=== PATIENT | male | born 1945 | race Asian ===

== ENCOUNTER 2018-09-27 11:27 | Inpatient (IN) | payer MEDICAID, MEDICARE, OTHER ==
[~2018-09-27] VITALS: Ht 170.2 cm; Wt 67.6 kg
[2018-09-27 11:34] VITALS: BP 187/87
[2018-09-27] MEDS ORDERED: ATORVASTATIN CA40 MG ORAL (11:35)
[2018-09-27] MEDS ORDERED: GLIPIZIDE10 MG PO (11:35)
[2018-09-27] MEDS ORDERED: METFORMIN HCL1000 M2 ORAL (11:35)
[2018-09-27] MEDS ORDERED: GABAPENTIN400 MG ORAL (11:35)
[2018-09-27] MEDS ORDERED: ACTOS30 MG ORAL (11:35)
[2018-09-27] MEDS ORDERED: VITAMIN D31000 UNI3 PO (11:35)
[2018-09-27] MEDS ORDERED: ASPIRIN-LOW81 MG ORAL (11:35)
--- NOTE | 2018-09-27 11:35 | NUR ---
ED Nurse Note: Patient brought in by ambulance from home due to N/V (pink colored emesis~ 20ml noted in bag, no blood) x 1hr. Reports no pain. Patient awake, alert, orientedx 4. Patient c/o dizziness. No facial droop. Speech is clear. Equal hand strength noted. Reports no recent illness or cough. Placed patient in semi-carlson position. Provided emesis bag at bedside. Patient took HTN medication today. Bed in lowest position. Addendum: 09/27/18 at 1225 by TEN No arm drift noted.
[2018-09-27] MEDS ORDERED: Meclizine 25mg tab ORAL ONE (11:45)
[2018-09-27 12:01] LABS: EOSINOPHILS % (AUTO) 19.9 % (0.0-3.0); HEMATOCRIT 37.4 % (42.0-52.0); HEMOGLOBIN 12.3 G/DL (14.2-18.0); LYMPHOCYTES % (AUTO) 26.2 % (20.0-45.0); MEAN CORPUSCULAR VOLUME 79 FL (80-99); MONOCYTES % (AUTO) 2.9 % (1.0-10.0); PLATELET COUNT 183 K/UL (150-450); RED BLOOD COUNT 4.75 M/UL (4.70-6.10); RED CELL DISTRIBUTION WIDTH 14.4 % (11.6-14.8); WHITE BLOOD COUNT 13.9 K/UL (4.8-10.8)
[2018-09-27 12:09] LABS: ANION GAP 15 mmol/L (5-15); BLOOD UREA NITROGEN 22 mg/dL (7-18); CALCIUM 9.6 MG/DL (8.5-10.1); CARBON DIOXIDE 25 MMOL/L (21-32); CHLORIDE 103 MMOL/L (98-107); CREATININE 1.3 MG/DL (0.55-1.30); POTASSIUM 3.7 MMOL/L (3.5-5.1); SODIUM 142 MMOL/L (136-145)
[2018-09-27] MEDS ORDERED: VITAMIN D31000 UNI4 PO (12:15)
[2018-09-27] MEDS ORDERED: LANTUS SOL100 UNIT/1 SUBQ (12:15)
--- NOTE | 2018-09-27 12:20 | NUR ---
ED Nurse Note: Patient taken down for CT scan. Family member at bedside.
[2018-09-27 12:22] LABS: ALANINE AMINOTRANSFERASE 18 U/L (12-78); ALBUMIN 4.2 G/DL (3.4-5.0); ALBUMIN/GLOBULIN RATIO 1.1 (1.0-2.7); ALKALINE PHOSPHATASE 62 U/L (46-116); ASPARTATE AMINO TRANSFERASE 16 U/L (15-37); BILIRUBIN,TOTAL 0.5 MG/DL (0.2-1.0); CKMB 1.2 NG/ML (0.0-3.6); CREATINE KINASE 122 U/L (26-308)
--- NOTE | 2018-09-27 12:26 | Diagnostic Imaging Report ---
Indication: Cough Comparison: 08/11/2013 and A single view chest radiograph was obtained. Findings: Only vascular congestion is present with cardiomegaly. There is mild basilar atelectasis on the left. Aorta is calcified. Sternotomy noted. Bones are osteopenic. IMPRESSION: Suspected mild CHF
--- NOTE | 2018-09-27 13:01 | Emergency Room Report ---
History of Present Illness General Chief Complaint: Vomiting Source: Patient, EMS Present Illness HPI Patient presents emergency department today complaining of acute onset of severe nausea and vomiting. Patient states that he is volume eating very severely and cannot tolerate anything p.o. In addition he complained of dizziness. He denies any chest pain or shortness of breath. Denies any dysuria urinary frequency. Symptoms noted to be severe. No other modifying factors. No other associated signs and symptoms. No other complaints were noted. Denies eating anything out of the ordinary. Denies any diarrhea. Denies any abdominal pain. Patient has never had episodes this before. Denies any headache. No other modifying factors. No other associated signs and symptoms. No other complaints were noted. Allergies: Coded Allergies: No Known Allergies (Verified , 03/20/09) Patient History Past Medical History: DM, HTN Past Surgical History: none Pertinent Family History: none Social History: Denies: smoking, alcohol use, drug use Reviewed Nursing Documentation: PMH: Agreed; PSxH: Agreed Nursing Documentation-PMH Past Medical History: No History, Except For Hx Hypertension: Yes Hx Diabetes: Yes Review of Systems All Other Systems: negative except mentioned in HPI Physical Exam Vital Signs Date Time Temp Pulse Resp B/P (MAP) Pulse Ox O2 Delivery O2 Flow Rate FiO2 09/27/18 11:23 97.9 87 16 193/82 (119) 98 Room Air Sp02 EP Interpretation: reviewed, normal General Appearance: alert, moderate distress Head: atraumatic Eyes: bilateral eye normal inspection ENT: normal ENT inspection, hearing grossly normal, normal voice Neck: normal inspection, full range of motion, supple, no bony tend Respiratory: normal inspection, lungs clear, normal breath sounds, no respiratory distress, no retraction, no wheezing Cardiovascular #1: regular rate, rhythm, no edema Gastrointestinal: normal inspection, normal bowel sounds, non tender, soft, no guarding, no hernia Genitourinary: no CVA tenderness Musculoskeletal: normal inspection, back normal, normal range of motion Neurologic: normal inspection, alert, responsive, speech normal, other - Appears vertiginous. Unable to get up or walk. Psychiatric: anxious Skin: no rash Medical Decision Making Diagnostic Impression: Primary Impression: Vertigo Additional Impressions: Intractable vomiting Unable to ambulate CVA (cerebral vascular accident) ER Course Patient presents emergency department today with vertigo. Differential diagnosis include acute CVA, acute electrolyte abnormality, benign positional vertigo just name a few. Given the severity of the patient's presentation I felt this is a highly complex patient. This patient required extensive workup. Patient exam is concerning for vertigo. Because of patient's age however CT scan was obtained. Patient was given Valium meclizine Zofran and fluids with significant improvement symptoms. CT scan of the head showed evidence of subacute CVA. 2 chronic CVA. Given patient's symptoms are improving and that the CT scan shows a subacute CVA patient does not qualify for TPA. As patient' s symptoms are unlikely to be related to the CVA. Furthermore patient's CT scan is subacute suggesting that patient could have had a infarct sometime ago. Therefore patient did not meet TPA criteria. Patient will be admitted for further management. Case was discussed in detail with Dr. Amari Romero. Patient will be placed on telemetry. Patient was given aspirin. Patient was reevaluated at 1:50 PM and feels significantly improved. Labs Test 09/27/18 11:45 White Blood Count 13.9 K/UL (4.8-10.8) Red Blood Count 4.75 M/UL (4.70-6.10) Hemoglobin 12.3 G/DL (14.2-18.0) Hematocrit 37.4 % (42.0-52.0) Mean Corpuscular Volume 79 FL (80-99) Mean Corpuscular Hemoglobin 25.9 PG (27.0-31.0) Mean Corpuscular Hemoglobin Concent 33.0 G/DL (32.0-36.0) Red Cell Distribution Width 14.4 % (11.6-14.8) Platelet Count 183 K/UL (150-450) Mean Platelet Volume 7.6 FL (6.5-10.1) Neutrophils (%) (Auto) 50.0 % (45.0-75.0) Lymphocytes (%) (Auto) 26.2 % (20.0-45.0) Monocytes (%) (Auto) 2.9 % (1.0-10.0) Eosinophils (%) (Auto) 19.9 % (0.0-3.0) Basophils (%) (Auto) 1.0 % (0.0-2.0) Sodium Level 142 MMOL/L (136-145) Potassium Level 3.7 MMOL/L (3.5-5.1) Chloride Level 103 MMOL/L (98-107) Carbon Dioxide Level 25 MMOL/L (21-32) Anion Gap 15 mmol/L (5-15) Blood Urea Nitrogen 22 mg/dL (7-18) Creatinine 1.3 MG/DL (0.55-1.30) Estimat Glomerular Filtration Rate mL/min (>60) Glucose Level 302 MG/DL (74-106) Calcium Level 9.6 MG/DL (8.5-10.1) Total Bilirubin 0.5 MG/DL (0.2-1.0) Aspartate Amino Transf (AST/SGOT) 16 U/L (15-37) Alanine Aminotransferase (ALT/SGPT) 18 U/L (12-78) Alkaline Phosphatase 62 U/L (46-116) Total Creatine Kinase 122 U/L (26-308) Creatine Kinase MB 1.2 NG/ML (0.0-3.6) Creatine Kinase MB Relative Index 0.9 Troponin I 0.005 ng/mL (0.000-0.056) Total Protein 7.9 G/DL (6.4-8.2) Albumin 4.2 G/DL (3.4-5.0) Globulin 3.7 g/dL Albumin/Globulin Ratio 1.1 (1.0-2.7) Lipase 327 U/L (73-393) EKG Diagnostic Results Rate: normal Rhythm: NSR ST Segments: other - Right bundle branch block Rhythm Strip Diag. Results EP Interpretation: yes Rate: 83 Rhythm: NSR, no PVC's, no ectopy Chest X-Ray Diagnostic Results Chest X-Ray Diagnostic Results : Chest X-Ray Ordered: Yes # of Views/Limited/Complete: 1 View Indication: Shortness of Breath EP Interpretation: No Interpretation: no consolidation, no effusion, no pneumothorax, other - Mild CHF CT/MRI/US Diagnostic Results CT/MRI/US Diagnostic Results : Imaging Test Ordered: Head CT: Subacute infarct to chronic infarct Last Vital Signs Date Time Temp Pulse Resp B/P (MAP) Pulse Ox O2 Delivery O2 Flow Rate FiO2 09/27/18 11:45 98 18 Room Air 09/27/18 11:34 187/87 99 09/27/18 11:23 97.9 Status: improved Disposition: ADMITTED INPATIENT Condition: Serious Referrals: NON PHYSICIAN (PCP) Esequiel Stark MD Sep 27, 2018 13:01
[2018-09-27 13:03] VITALS: BP 190/74
--- NOTE | 2018-09-27 13:09 | Diagnostic Imaging Report ---
Indication: Vertigo nausea and vomiting Technique: Contiguous 5 mm thick transaxial imaging of the head obtained in a Siemens Sensation [address] scanner. Soft tissue and bone windows generated. Automatic Exposure Control was utilized. Total Dose length Product (DLP): 1559.[address] Dose Index Volume (CTDIvol): 70.38 mGy Comparison: none Findings: There is mild prominence of the ventricles, basal cisterns, and cerebral sulci consistent with atrophy. Mild, nonspecific, white matter hypoattenuation is noted throughout the brain consistent with chronic small vessel disease. There is a subcentimeter low-attenuation focus in the left thalamus consistent with lacunar infarct. This is probably not acute. However please correlate clinically. There is no midline shift, edema, acute hemorrhage, mass effect, or abnormal extra-axial fluid collections. Bones are unremarkable. Impression: 7 mm lacunar infarct in the left thalamus. This is probably subacute to chronic in age; please correlate clinically. No acute intracranial bleed, mass effect or edema. Mild atrophy of the brain. Nonspecific white matter hypoattenuation probably due to chronic small vessel disease. The CT scanner at [facility] is accredited by the [employer] [place] [employer] and the scans are performed using dose optimization techniques as appropriate to a performed exam including Automatic Exposure control.
--- NOTE | 2018-09-27 13:22 | NUR ---
ED Nurse Note: Dr. Stark notified that patient c/o headache and high blood pressure 183/77 with HR 69. Reports no dizziness or drowsiness. No N/V at this time.
[2018-09-27] MEDS ORDERED: Morphine Sulfate 4mg/ml Inj (IV USE ONLY) IVP ONE (13:30)
--- NOTE | 2018-09-27 14:15 | NUR ---
ED Nurse Note: Patient BP is still elevated 180/70 after giving hypertensive medicine, MD made aware and acknowledged. Non SOB. Breathing even and unlabored. Spoke with Radha RAE from SDU to give report.
[2018-09-27] MEDS ORDERED: Aspirin Baby 81mg ONE (14:16)
--- NOTE | 2018-09-27 14:16 | NUR ---
ED Nurse Note: Dr. Stark notified and aware of blood pressure. No further order received and ok to transfer patient to SDU at this time.
[2018-09-27] MEDS: Aspirin Baby 81mg ORAL SCH (14:17)
[2018-09-27 14:25] VITALS: BP 194/93
--- NOTE | 2018-09-27 14:25 | NUR ---
ED Nurse Note: Patient is being transferred to SDU, accompanied by RN and EMT. No neuro changes noted. Belongings given to patient's daughter.
--- NOTE | 2018-09-27 14:28 | NUR ---
ED Nurse Note: Belongings including ringx1, watchx1 and necklace given to daughter, Tammy.
[2018-09-27 16:00] VITALS: BP 164/78
[2018-09-27] MEDS ORDERED: Pantoprazole Inj IVP SCH (16:10)
--- NOTE | 2018-09-27 16:18 | NUR ---
NURSE NOTES: SPOKE WITH DR MERCEDES AND DR SANTOYO. NEW ORDERS MADE AND CARRIED OUT. WILL CONTINUE TO MONITOR.
[2018-09-27 19:18] LABS: APPEARANCE,URINE CLEAR; BILIRUBIN, URINE NEGATIVE (NEGATIVE); COLOR,URINE PALE YELLOW; GLUCOSE, URINE (UA) 4+ (NEGATIVE); KETONES,URINE 1+ (NEGATIVE); LEUKOCYTE ESTERASE ,URINE NEGATIVE (NEGATIVE); NITRITE,URINE NEGATIVE (NEGATIVE); PH,URINE 8 (4.5-8.0); PROTEIN,URINE 3+ (NEGATIVE); UROBILINOGEN,URINE NORMAL MG/DL (0.0-1.0)
--- NOTE | 2018-09-27 19:21 | NUR ---
HAND-OFF: Report given to Isaura Sanchez RN.
--- NOTE | 2018-09-27 19:22 | NUR ---
NURSE NOTES: Received bedside report from BUTCH Brasher.Patient stable,A&O x4,SR w/BBB on electronic device monitor,tolerated r/air well,no c/o pain,no respiratory distress noted,NPO,BS active in all quadrants,IV asymptomatic,intact on R hand G 20 running with NS @ 75 ml/hr,bed secured in a low safety position,call light within a reach, Family at bedside.Will continue to follow POC.
[2018-09-27 20:00] VITALS: BP 154/66
--- NOTE | 2018-09-27 20:04 | NUR ---
NURSE NOTES: Report given to BUTCH Chang.Patient stable,sleeping
--- NOTE | 2018-09-27 20:05 | NUR ---
NURSE NOTES: Received patient from BUTCH Weems. patient is resting in bed, AO X4, denies pain at this time. patient is on room air, tolerating well. no s/sx of respiratory distress noted at this time. Condom catheter is patent and intact. IV site is patent and intact, running fluids at prescribed rate. bed in lowest position and locked, siderails up x2, call light within reach. will continue to monitor.
--- NOTE | 2018-09-27 21:00 | NUR ---
NURSE NOTES: patient c/o pressure in bladder and unable to urinate. bladder scan shows 675 ml of urine in bladder. hot and cold compresses applied. will continue to monitor.
--- NOTE | 2018-09-27 21:10 | NUR ---
NURSE NOTES: patient was able to void 375 ml of urine. post void retention is 309. patient refuses catheter. explained risks and benefits of catheter insertion, patient verbalized understanding, but still refuses. will inform MD.
--- NOTE | 2018-09-27 21:27 | NUR ---
NURSE NOTES: called and left message for Dr. Cabrera regarding patient's urinary retention. awaiting orders.
[2018-09-27] MEDS: Pantoprazole Inj IVP SCH (21:34)
--- NOTE | 2018-09-27 21:55 | NUR ---
NURSE NOTES: Received call back from Dr. Cabrera. will carry out orders.
[2018-09-27] MEDS ORDERED: Tamsulosin 0.4mg cap ORAL SCH ×2 (22:00)
--- NOTE | 2018-09-27 22:00 | NUR ---
NURSE NOTES: followed up with MD regarding insulin coverage. patient is currently NPO; blood sugar is currently 188. will continue to monitor. awaiting call back.
[2018-09-27] MEDS ORDERED: FLOMAX0.4 MG ORAL (22:08)
[2018-09-27] MEDS ORDERED: PROSCAR5 MG ORAL (22:08)
[2018-09-27] MEDS ORDERED: METOPROLOL SUCC50 MG ORAL (22:11)
--- NOTE | 2018-09-27 23:30 | Consultation ---
DATE OF CONSULTATION: 09/27/2018 INFECTIOUS DISEASE CONSULTATION CONSULTING PHYSICIAN: Florencio Dennison M.D. PRIMARY ATTENDING PHYSICIAN: Amari Castorena M.D. REASON FOR CONSULT: Leukocytosis and renal failure. HISTORY OF PRESENT ILLNESS: The patient is a 72-year-old [place] male, admitted today from home complaining of dizziness, nausea, and vomiting, was found to have vertigo. A CT scan of the head showed subacute to chronic lacunar infarct and also leukocytosis with WBC of 13.9, had eosinophilia around 20%. PAST MEDICAL HISTORY: Significant for diabetes mellitus, hypertension, coronary artery disease, status post bypass in 2009. ALLERGIES: No known drug allergies. MEDICATIONS: He had clonidine in the ER, aspirin, Zofran, meclizine, and diazepam. SOCIAL HISTORY: From [place]. . Denies alcohol, drug abuse, or smoking. The last travel to [place] was in 2012. REVIEW OF SYSTEMS: Denies runny nose or coughing. Nausea and vomiting is better. Has some headache. No problem passing urine. Had difficulty of walking and usually walks with a cane. PHYSICAL EXAMINATION: VITAL SIGNS: Pulse 72, blood pressure 184/70, and temperature 98.5. GENERAL APPEARANCE: No acute distress. HEAD AND NECK: No oral lesions. [place] conjunctiva. HEART: Normal rate. LUNGS: Clear. ABDOMEN: Soft and nontender. EXTREMITIES: Has no edema. NEUROLOGIC: He is awake, alert, and oriented x3. Normal cranial nerves. Normal muscle strength in the upper extremities and near normal muscle strength in the lower extremities. LABORATORY AND DIAGNOSTIC DATA: WBC 13.9, hemoglobin 12.3, hematocrit 37.4, and platelets 183,000. Sodium 142, potassium 3.7, chloride 103, bicarb 25, BUN 23, creatinine 103, and glucose 302. Normal LFTs. CT scan of the head showed left thalamus lacunar infarct, subacute to chronic. Chest x-ray showed mild CHF. IMPRESSION: 1. Leukocytosis with eosinophilia. 2. Vertigo. 3. Uncontrolled hypertension. 4. Uncontrolled diabetes mellitus. 5. Subacute to chronic left lacunar infarct. 6. Coronary artery disease, status post bypass. RECOMMENDATIONS: 1. Check UA. 2. We will follow up the CBC. 3. Observe off antibiotics for now. At the end of my exam, I thank Dr. Castorena for involving me in the care of this patient. Florencio Dennison M.D. DR: BRANDON JOB#: [id number] CC:
[2018-09-28] VITALS (8 sets, daily range): BP systolic 116–135; BP diastolic 57–70
--- NOTE | 2018-09-28 05:00 | History and Physical Report ---
DATE OF ADMISSION: 09/27/2018 HISTORY OF PRESENT ILLNESS: The patient is admitted for vomiting and vertigo. subacute to chronic infarct in the thalamus. The patient also had elevated sugar and also admitted for azotemia as well as elevated BP. The patient was vomiting for one day and also had ataxia and dizziness and CVA, subacute to chronic, as well as vomiting. PAST MEDICAL HISTORY: Significant for vitamin D deficiency, hyperlipidemia, BPH, NIDDM, hypertension, and CAD. PAST SURGICAL HISTORY: CABG. ALLERGIES: No known allergies. MEDICATIONS: Vitamin D, Lipitor, finasteride, , glipizide, Lantus, metformin, metoprolol, Actos, and Flomax. FAMILY HISTORY: Does have a history of heart disease. SOCIAL HISTORY: He does have a history of smoking. No history of drug or alcohol use. REVIEW OF SYSTEMS: HEENT: Denies headaches. RESPIRATORY: Denies shortness of breath. Denies cough. CARDIOVASCULAR: Denies chest pain. GASTROINTESTINAL: Denies diarrhea. Does have vomiting x1. EXTREMITIES: Denies pain in lower extremities. CENTRAL NERVOUS SYSTEM: The patient has slow mentation, and the patient basically in general walks with a cane. PHYSICAL EXAMINATION: VITAL SIGNS: Temperature 97.2, pulse is 71, and blood pressure 194/93. HEENT: PERRLA. NECK: Supple. No lymphadenopathy. CARDIOVASCULAR: Regular rate and rhythm. CHEST: Clear to auscultation. GASTROINTESTINAL: Abdomen is soft, nontender. No organomegaly. Positive bowel sounds. EXTREMITIES: No edema. Reflexes equal on both sides. NEUROLOGIC: He has generalized weakness. He has a slow mentation. Oriented x2. Reflexes equal on both sides. LABORATORY DATA: and platelet count 183. Sodium 142, potassium of 3.7, BUN of 23, creatinine 1.3, and glucose of 302. ASSESSMENT AND PLAN: 1. Chronic subacute to chronic CVA. 2. Elevated blood sugar. 3. Slow mentation. 4. Leukocytosis. 5. Vertigo and vomiting. 6. Elevated blood pressure. I have asked Dr. Luu, Dr. Nevarez, Dr. Cabrera, and Dr. Florenico Dennison to see the patient for the above-mentioned diagnoses and treatment. Ali Sabiha Castorena DR: CHAVA JOB#: [id number] CC:
[2018-09-28 05:03] LABS: HEMATOCRIT 33.7 % (42.0-52.0); HEMOGLOBIN 10.9 G/DL (14.2-18.0); MEAN CORPUSCULAR VOLUME 79 FL (80-99); PLATELET COUNT 181 K/UL (150-450); RED BLOOD COUNT 4.25 M/UL (4.70-6.10); RED CELL DISTRIBUTION WIDTH 12.3 % (11.6-14.8); WHITE BLOOD COUNT 11.5 K/UL (4.8-10.8)
[2018-09-28 05:42] LABS: ALANINE AMINOTRANSFERASE 14 U/L (12-78); ALBUMIN 3.5 G/DL (3.4-5.0); ALBUMIN/GLOBULIN RATIO 1.1 (1.0-2.7); ALKALINE PHOSPHATASE 59 U/L (46-116); ANION GAP 6 mmol/L (5-15); ASPARTATE AMINO TRANSFERASE 15 U/L (15-37); BILIRUBIN,TOTAL 0.8 MG/DL (0.2-1.0); BLOOD UREA NITROGEN 23 mg/dL (7-18); CARBON DIOXIDE 28 MMOL/L (21-32); CHLORIDE 103 MMOL/L (98-107); CHOLESTEROL 140 MG/DL (< 200); FERRITIN 134 NG/ML (8-388); GAMMA GLUTAMYL TRANSPEPTIDASE 16 U/L (5-85); HDL CHOLESTEROL 46 MG/DL (40-60); PHOSPHORUS 3.8 MG/DL (2.5-4.9); POTASSIUM 3.8 MMOL/L (3.5-5.1); SODIUM 137 MMOL/L (136-145); TRIGLYCERIDES 83 MG/DL (30-150)
[2018-09-28 06:23] LABS: % IRON SATURATION 21 % (15-50); IRON 51 ug/dL (50-175); TOTAL IRON BINDING CAPACITY 241 ug/dL (250-450)
--- NOTE | 2018-09-28 07:15 | NUR ---
NURSE NOTES: RECEIVED PT WITH HOB ELEVATED 45 DEGREE AWAKE AND ALERT ORIENTED X4.PT DENIES CP OR ANY DISCOMFORT AT THIS TIME.PT AT BED SIDE SEEMS VERY SUPPORTIVE. PT IS NPO ,ON SCHEDULE FOR SWALLOWING STUDY AT BED SIDE THIS AM.FULL BODY ASSESSMENT DONE.PT RECEIVING IV FLUIDS 1/2 NS,IVF,S @ 75CC/HRS INFUSING WELL CONNECTED TO H.L G#20 ON RT HAND.NO ACUTED DISTRESS NOTED AT THIS TIME.WILL CONT TO MONITOR.
--- NOTE | 2018-09-28 07:40 | NUR ---
HAND-OFF: Report given to BUTCH De Anda. patient is in stable condition.
[2018-09-28] MEDS ORDERED: Gadavist 7.5mMol/7.5ml vial IV PRN (09:15)
[2018-09-28] MEDS: Pantoprazole Inj IVP SCH ×2 (10:05→22:01)
[2018-09-28] MEDS: Aspirin Baby 81mg ORAL SCH (10:05)
--- NOTE | 2018-09-28 11:15 | NUR ---
PT EVALUATION NOTE Patient seen for initial evaluation, see complete evaluation for details. Patient presents with generalized weakness which affects patient's ability to complete mobility tasks. Patient requires mod assist for bed mobility and min assist for transfers with FWW. Patient unable to ambulate due to weakness and impaired standing balance. Patient will benefit from skilled inpatient PT intervention to increase overall strength, balance and safety for improved functional mobility. Recommend discharge to ARU/SNF for continued rehab once medically cleared by MD as patient lives in a second floor apartment with 30 stairs to access apartment and no elevator. Patient has SPC and FWW; further DME needs to be determined based on patient's progress. Addendum: 09/28/18 at 1213 by LEILA GUIDRY PT Amended: Links added.
--- NOTE | 2018-09-28 11:20 | Consultation ---
Consult Note Consult Note asked to eval at the request of Dr Abdi for fluid management and urinary retention Patient presents emergency department today complaining of acute onset of severe nausea and vomiting. Patient states that he is volume eating very severely and cannot tolerate anything p.o. In addition he complained of dizziness. He denies any chest pain or shortness of breath. Denies any dysuria urinary frequency. Symptoms noted to be severe. No other modifying factors. No other associated signs and symptoms. No other complaints were noted. Denies eating anything out of the ordinary. Denies any diarrhea. Denies any abdominal pain. Patient has never had episodes this before. Denies any headache. No other modifying factors. No other associated signs and symptoms. No other complaints were noted. No Known Allergies (Verified , 03/20/09) examined data reviewed bladder WILBERTO last night had over 350 cc retention post voiding Assessment/Plan urinary retention intractible vomiting dehydration CVA HTN Anemia Proteinuria Flomax Hydrate Norvasc per Jung Nuñez MD Sep 28, 2018 11:20
--- NOTE | 2018-09-28 11:27 | NUR ---
NOTES: REFERRED FOR SWALLOW EVALUATION BY DR. MERCEDES, SEE FULL REPORT IN CARE ACTIVITY SECTION. DYSPHAGIA RISK FACTORS FOR THIS 72 Y.O.EG[place]IAN AND TAGALOG-SPEAKING MALE: ACUTE ISSUES: NAUSEA AND VOMITING YESTERDAY NOT TODAY, FELT DIZZY NOT NOW, HAS HEAD PAIN (3) BILATERAL FRONT OF HEAD, AZOTEMIA, SUBACUTE TO CHRONIC THALAMIC LACUNAR INFARCT PER CT HEAD SCAN (AWAITING MRI BRAIN), ELEVATED BLOOD SUGAR AND BP, ATAXIA LUNGS HAVE MILD CHF H/O SMOKING AND BYPASS 2010, SOB, DM, PROTONIX FOR GERD NO POLST NOR AD REGARDING TUBE FEEDINGS IF NEEDS FROM HOME ON REGULAR TEXTURE DIET LOW SALT AND SUGER PER PT W/O SWALLOWING PROBLEMS. LIKES RICE. RD TO SEE PT AND RECOMMEND A DIET. CURRENTLY NPO EXCEPT MEDS AND ICE CHIPS ALERT AND ABLE TO EXPRESS NEEDS WITH PRESENT. INITIAL IMPRESSIONS: GROSSLY FUNCTIONAL SWALLOW W/O OVERT S/S OF ASPIRATION AND REFLUX WITH THIN LIQUIDS VIA CUP SEQUENTIAL SIPS (3 OZ WATER RIC SWALLOW PROTOCOL), PUREED TSP, AND MASTICATED SOLID (1/2 CRACKER) WITH BOTH UPPER/LOWER FULL DENTURES. HAS RISK FOR SILENT ASPIRATION AND SOME SUBTLE DYSPHAGIA PROBLEMS IN BOTH ORAL AND PHARYNGEAL PHASES THAT CANNOT BE SEEN AT BEDSIDE. RECOMMENDATIONS: COMPLETE MODIFIED BARIUM SWALLOW STUDY (MBSS) TO FURTHER ASSESS SWALLOW, DETERMINE SILENT ASPIRATION RISK/ETIOLOGY, AND ATTEMPT TRIAL TREATMENT TECHNIQUES IF PO GIVEN FOR QUALITY OF LIFE, CONSIDER SENDING MECH SOFT FINELY CHOPPED DIET AND THIN LIQUIDS WITH POSTED ASPIRATION/REFLUX PRECAUTIONS AND SUPERVISION/ASSIST WITH MEALS SEE RD NOTE REGARDING DIET TYPE (RICHARD ROSE TO PLACE NOTE SOON) WILL SEE PATIENT FOR SKILLED MANAGEMENT/TX FOR UPGRADES AND TX PENDING MBSS RESULTS. COGNITIVE-COMMUNICATIVE EVAL/TX EDUCATED/TRAINED STAFF (BUTCH MARQUEZ) IN POSTED ASP/REFLUX PRECAUTIONS. D/W BUTCH MARQUEZ, WHO SAID DR HANEY APPROVED DIET AND MBSS.
--- NOTE | 2018-09-28 13:35 | NUR ---
NURSE NOTES: PT CAME BACK FROM MRI DPT VIA GURNEY ,TOLERATED WELL PROCEDURES DENIES PAIN ANY DISCOMFORT AT THIS TIME.PT VOID 100ML OF YELLOW URINE COLOR ,BLADDER SCAN DONE BY MERRILL RAE , POSS VOID RESIDUAL 95ML, DR JEFFRIES MADE AWARE AND NOTIFIED. WILL CONT TO MONITOR.
--- NOTE | 2018-09-28 13:39 | Diagnostic Imaging Report ---
APPROVED REPORT CPT Code: 15758 Present Symptoms Comments: AMS BILATERAL: Imaging reveals a patent deep venous system bilaterally. There is no evidence of thrombus within the femoral, popliteal or tibial segments. The greater saphenous veins are also within normal limits. Doppler indicates normal spontaneous flow within these segments.
--- NOTE | 2018-09-28 13:42 | NUR ---
MRI/MRA BRAIN AND MRA NECK W/CELESTINE COMPLETED.
[2018-09-28] MEDS: Tamsulosin 0.4mg cap ORAL SCH ×2 (14:10→17:47)
--- NOTE | 2018-09-28 16:28 | Infectious Diseases Prog Note ---
Assessment/Plan Assessment/Plan IMPRESSION: 1. Leukocytosis with eosinophilia.improving 2. Vertigo. 3. Uncontrolled hypertension. 4. Uncontrolled diabetes mellitus. 5. Subacute to chronic left lacunar infarct. 6. Coronary artery disease, status post bypass. RECOMMENDATIONS: 1.will f/u stool Ova & parasite 2. We will follow up the CBC. 3. Observe off antibiotics for now. Subjective ROS Limited/Unobtainable: No Constitutional: Reports: no symptoms, other - feels better HEENT: Reports: no symptoms Respiratory: Reports: no symptoms Cardiovascular: Reports: no symptoms Gastrointestinal/Abdominal: Reports: no symptoms Genitourinary: Reports: no symptoms Neurologic: Reports: no symptoms Allergies: Coded Allergies: No Known Allergies (Verified , 03/20/09) Objective Vital Signs Last 24 Hour Vital Signs Date Time Temp Pulse Resp B/P (MAP) Pulse Ox O2 Delivery O2 Flow Rate FiO2 09/28/18 16:00 66 09/28/18 12:00 Room Air 09/28/18 12:00 97.5 66 22 121/57 (78) 96 09/28/18 11:51 66 09/28/18 10:06 65 135/67 09/28/18 09:03 98.4 65 21 135/67 (89) 100 09/28/18 08:00 Room Air 09/28/18 08:00 62 09/28/18 08:00 98.4 65 21 135/67 (89) 09/28/18 05:11 60 09/28/18 04:00 98.6 60 18 124/66 (85) 100 09/28/18 04:00 Room Air 09/28/18 00:00 98.1 57 20 116/60 (78) 98 09/28/18 00:00 57 09/28/18 00:00 Room Air 09/27/18 20:00 Room Air 09/27/18 20:00 98.0 63 20 154/66 (95) 100 09/27/18 20:00 64 09/27/18 16:48 66 171/85 Height (Feet): 5 Height (Inches): 7.00 Weight (Pounds): 149 General Appearance: no acute distress HEENT: mucous membranes moist Respiratory/Chest: lungs clear Cardiovascular: normal rate Abdomen: soft, non tender Neurologic/Psychiatric: alert, oriented x 3, responsive Laboratory Tests Test 09/27/18 18:16 09/28/18 02:50 Urine Color Pale yellow Urine Appearance Clear Urine pH 8 (4.5-8.0) Urine Specific [place] 1.010 (1.005-1.035) Urine Protein 3+ (NEGATIVE) H Urine Glucose (UA) 4+ (NEGATIVE) H Urine Ketones 1+ (NEGATIVE) H Urine Blood 1+ (NEGATIVE) H Urine Nitrite Negative (NEGATIVE) Urine Bilirubin Negative (NEGATIVE) Urine Urobilinogen Normal MG/DL (0.0-1.0) Urine Leukocyte Esterase Negative (NEGATIVE) Urine RBC 0-2 /HPF (0 - 0) H Urine WBC 0-2 /HPF (0 - 0) Urine Squamous Epithelial Cells None /LPF (NONE/OCC) Urine Bacteria Few /HPF (NONE) White Blood Count 11.5 K/UL (4.8-10.8) H Red Blood Count 4.25 M/UL (4.70-6.10) L Hemoglobin 10.9 G/DL (14.2-18.0) L Hematocrit 33.7 % (42.0-52.0) L Mean Corpuscular Volume 79 FL (80-99) L Mean Corpuscular Hemoglobin 25.7 PG (27.0-31.0) L Mean Corpuscular Hemoglobin Concent 32.4 G/DL (32.0-36.0) Red Cell Distribution Width 12.3 % (11.6-14.8) Platelet Count 181 K/UL (150-450) Mean Platelet Volume 7.8 FL (6.5-10.1) Neutrophils (%) (Auto) % (45.0-75.0) Lymphocytes (%) (Auto) % (20.0-45.0) Monocytes (%) (Auto) % (1.0-10.0) Eosinophils (%) (Auto) % (0.0-3.0) Basophils (%) (Auto) % (0.0-2.0) Sodium Level 137 MMOL/L (136-145) Potassium Level 3.8 MMOL/L (3.5-5.1) Chloride Level 103 MMOL/L (98-107) Carbon Dioxide Level 28 MMOL/L (21-32) Anion Gap 6 mmol/L (5-15) Blood Urea Nitrogen 23 mg/dL (7-18) H Creatinine 1.0 MG/DL (0.55-1.30) Estimat Glomerular Filtration Rate mL/min (>60) Glucose Level 146 MG/DL (74-106) #H Hemoglobin A1c 9.1 % (4.3-6.0) H Uric Acid 3.9 MG/DL (2.6-7.2) Calcium Level 9.0 MG/DL (8.5-10.1) Phosphorus Level 3.8 MG/DL (2.5-4.9) Magnesium Level 1.9 MG/DL (1.8-2.4) Iron Level 51 ug/dL (50-175) Total Iron Binding Capacity 241 ug/dL (250-450) L Percent Iron Saturation 21 % (15-50) Unsaturated Iron Binding 190 ug/dL (112-346) Ferritin 134 NG/ML (8-388) Total Bilirubin 0.8 MG/DL (0.2-1.0) Gamma Glutamyl Transpeptidase 16 U/L (5-85) Aspartate Amino Transf (AST/SGOT) 15 U/L (15-37) Alanine Aminotransferase (ALT/SGPT) 14 U/L (12-78) Alkaline Phosphatase 59 U/L (46-116) C-Reactive Protein, Quantitative < 0.4 mg/dL (0.00-0.90) Pro-B-Type Natriuretic Peptide 449 pg/mL (0-125) H Total Protein 6.7 G/DL (6.4-8.2) Albumin 3.5 G/DL (3.4-5.0) Globulin 3.2 g/dL Albumin/Globulin Ratio 1.1 (1.0-2.7) Triglycerides Level 83 MG/DL (30-150) Cholesterol Level 140 MG/DL (< 200) LDL Cholesterol 80 mg/dL (<100) HDL Cholesterol 46 MG/DL (40-60) Cholesterol/HDL Ratio 3.0 (3.3-4.4) L Vitamin B12 Level 302 PG/ML (193-986) Folate 35.0 NG/ML (8.6-58.9) Thyroid Stimulating Hormone (TSH) 1.086 uiU/mL (0.358-3.740) Current Medications Medications (Trade) Dose Ordered Sig/Alondra Route PRN Reason Start Time Stop Time Status Last Admin Dose Admin Acetaminophen (Tylenol) 650 mg Q4H PRN ORAL Mild Pain/Temp > 100.5 09/27/18 16:00 10/27/18 15:59 Amlodipine Besylate (Norvasc) 5 mg DAILY ORAL 09/27/18 16:30 10/27/18 16:29 09/28/18 10:06 Aspirin (ASA) 81 mg DAILY ORAL 09/27/18 14:15 10/27/18 14:14 09/28/18 10:05 Clonidine HCl (Catapres Tab) 0.1 mg Q4H PRN ORAL bp 165 syst and above 09/27/18 16:45 10/27/18 16:44 Gadobutrol (Gadavist) 7.5 mmol NOW PRN IV Radiology Procedure 09/28/18 09:15 10/01/18 09:07 Pantoprazole (Protonix) 40 mg Q12HR IVP 09/27/18 21:00 10/27/18 16:09 09/28/18 10:05 Sodium Chloride 1,000 ml @ 75 mls/hr [id number] IV 09/27/18 16:46 10/27/18 16:45 09/28/18 06:05 Tamsulosin HCl (Flomax) 0.4 mg BID ORAL 09/28/18 11:30 10/28/18 11:29 09/28/18 14:10 Florencio Dennison MD Sep 28, 2018 16:28
[2018-09-28] MEDS ORDERED: Tubing IV Secondary IV ONE (16:37)
[2018-09-28] MEDS ORDERED: 1/2 NS 1000ml IV ONE (16:37)
--- NOTE | 2018-09-28 18:23 | Cardiology Report ---
APPROVED REPORT EKG Measurement Heart [id number] Normal sinus rhythm Right bundle branch block Left anterior fascicular block Bifascicular block Voltage criteria for left ventricular hypertrophy Abnormal ECG
--- NOTE | 2018-09-28 19:20 | NUR ---
HAND-OFF: Report given to .TIP RAE.
--- NOTE | 2018-09-28 19:21 | NUR ---
NURSE NOTES: Received bedside report from BUTCH Fitzpatrick.Patient stable,A&O x4,SR on patient monitor,tolerating room air well,no c/o pain,no respiratory distress noted,IV asymptomatic,intact on R hand G 20 .Bed secured in a low safety position,call light within a reach, Family at bedside.Will continue to monitor and follow plan of care.
--- NOTE | 2018-09-28 21:30 | Progress Note ---
DATE: 09/28/2018 SUBJECTIVE: The patient is much better. He denies any dizzy spells. His vomiting is under control. He had his MRI scan done, the results are not out yet. PHYSICAL EXAMINATION: VITAL SIGNS: Temperature is 97.5 degrees, blood pressure is 121/57, respiratory rate 22, SpO2 is 96, pulse is 66 and regular. MENTAL STATUS EXAMINATION: Date, he knows it is 09/28/2018. Place, he knows he is on the second floor at [facility]. He is oriented to person. Language function, spoken speech is basically fluent with good comprehension. Repetition is intact. He can spell world backwards "DLROW." CRANIAL NERVES: Cranial nerves II through XII are intact. The cranial nerves IX and X were not tested. Visual acuity not tested. Pupils are 5 mm, round, light reactive. Extraocular motility is full. There is a questionable decreased right nasolabial fold. MUSCLE EXAMINATION: Muscle bulk and tone are unchanged. Strength is 5/5 proximally and distally. Reflexes are trace in the upper extremities, 0 at the knees and ankles with downgoing toes when testing for Babinski response. Coordination, [id number], [id number] testing are intact. SENSORY EXAMINATION: Fine touch and pinprick are intact. IMPRESSION: Metabolic encephalopathy is resolving. His left thalamic stroke is being evaluated. The patient has a carotid bruit on the right. I am going to do a duplex scan of the carotid arteries. Await further studies. PLAN: 1. Continue aspirin. 2. Obtain the results of studies. Dao Nevarez MD DR: JOHAN JOB#: [id number] CC:
--- NOTE | 2018-09-28 21:38 | General Progress Note ---
Assessment/Plan Problem List: (1) CVA (cerebral vascular accident) ICD Codes: I63.9 - Cerebral infarction, unspecified SNOMED: 711259251 (2) Vertigo ICD Codes: R42 - Dizziness and giddiness SNOMED: 807719845 (3) Unable to ambulate ICD Codes: R26.2 - Difficulty in walking, not elsewhere classified SNOMED: 739748667 (4) Intractable vomiting ICD Codes: R11.10 - Vomiting, unspecified SNOMED: 487904392 Status: progressing Assessment/Plan: afebrile no vomitting today subacute cva weak slow mentation Subjective ROS Limited/Unobtainable: Yes Allergies: Coded Allergies: No Known Allergies (Verified , 03/20/09) Objective Last 24 Hour Vital Signs Date Time Temp Pulse Resp B/P (MAP) Pulse Ox O2 Delivery O2 Flow Rate FiO2 09/28/18 20:00 64 09/28/18 20:00 97.5 67 20 134/70 (91) 95 09/28/18 16:00 Room Air 09/28/18 16:00 66 09/28/18 16:00 96.0 65 21 128/66 (86) 100 09/28/18 12:00 Room Air 09/28/18 12:00 97.5 66 22 121/57 (78) 96 09/28/18 11:51 66 09/28/18 10:06 65 135/67 09/28/18 09:03 98.4 65 21 135/67 (89) 100 09/28/18 08:00 Room Air 09/28/18 08:00 62 09/28/18 08:00 98.4 65 21 135/67 (89) 09/28/18 05:11 60 09/28/18 04:00 98.6 60 18 124/66 (85) 100 09/28/18 04:00 Room Air 09/28/18 00:00 98.1 57 20 116/60 (78) 98 09/28/18 00:00 57 09/28/18 00:00 Room Air Intake and Output 09/27/18 09/28/18 18:59 06:59 Intake Total 57 ml 825 ml Output Total 230 ml 825 ml Balance -173 ml 0 ml IV Total 57 ml 825 ml Output Urine Total 200 ml 825 ml Emesis 30 ml # Voids 3 Laboratory Tests 09/28/18 02:50: White Blood Count 11.5H, Red Blood Count 4.25L, Hemoglobin 10.9L, Hematocrit 33.7L, Mean Corpuscular Volume 79L, Mean Corpuscular Hemoglobin 25.7L, Mean Corpuscular Hemoglobin Concent 32.4, Red Cell Distribution Width 12.3, Platelet Count 181, Mean Platelet Volume 7.8, Neutrophils (%) (Auto) , Lymphocytes (%) ( Auto) , Monocytes (%) (Auto) , Eosinophils (%) (Auto) , Basophils (%) (Auto) , Sodium Level 137, Potassium Level 3.8, Chloride Level 103, Carbon Dioxide Level 28, Anion Gap 6, Blood Urea Nitrogen 23H, Creatinine 1.0, Estimat Glomerular Filtration Rate , Glucose Level 146#H, Hemoglobin A1c 9.1H, Uric Acid 3.9, Calcium Level 9.0, Phosphorus Level 3.8, Magnesium Level 1.9, Iron Level 51, Total Iron Binding Capacity 241L, Percent Iron Saturation 21, Unsaturated Iron Binding 190, Ferritin 134, Total Bilirubin 0.8, Gamma Glutamyl Transpeptidase 16 , Aspartate Amino Transf (AST/SGOT) 15, Alanine Aminotransferase (ALT/SGPT) 14, Alkaline Phosphatase 59, C-Reactive Protein, Quantitative < 0.4, Pro-B-Type Natriuretic Peptide 449H, Total Protein 6.7, Albumin 3.5, Globulin 3.2, Albumin/ Globulin Ratio 1.1, Triglycerides Level 83, Cholesterol Level 140, LDL Cholesterol 80, HDL Cholesterol 46, Cholesterol/HDL Ratio 3.0L, Vitamin B12 Level 302, Folate 35.0, Thyroid Stimulating Hormone (TSH) 1.086 Height (Feet): 5 Height (Inches): 7.00 Weight (Pounds): 149 Neck: supple Cardiovascular: normal rate Respiratory/Chest: lungs clear Amari Castorena MD Sep 28, 2018 21:38
[2018-09-29] VITALS: BP 144/69
--- NOTE | 2018-09-29 03:51 | Consultation ---
DATE OF CONSULTATION: 09/28/2018 NOTE: POOR AUDIO NEUROLOGIC CONSULTATION CONSULTING PHYSICIAN: Dao Nevarez M.D. CHIEF COMPLAINT: This is a 72-year-old right-handed Samoan man with a history of hypertension for years, diabetes mellitus type 2 for years, hyperlipidemia for years, coronary artery disease with four bypass procedures, probable diabetic neuropathy. The patient was admitted with nausea and vomiting starting 2 days. As I see the patient, . The patient states abdominal pain. There is no history of gabapentin, he does not know how much he takes. The patient used to drink since stopping 20 years ago. There is vertigo today his white count of 13,900, hemoglobin of 12.2 with an MCV of 39, MCH 25.9, platelet count was 183,000. Today, his white count is 11,500. Yesterday, the patient had 20% eosinophils. His initial chemistry yesterday revealed a glucose , BUN 22. Normal liver function and a normal CPK of 122 and lipase normal. His troponin is 0.005. . Electrolytes normal. His HDL cholesterol 46, total cholesterol 140, LDL of [address] scan yesterday revealed a 7 mm lacunar infarct in the left thalamus, probably due to chronic anemia, mild nonspecific white matter hypoattenuation is noted throughout the brain consistent with small vessel disease. His chest x-ray has some vascular congestion and cardiomegaly and mild basilar atelectasis and calcified aorta and sternotomy . EKG revealed normal sinus rhythm, right bundle-branch block, left anterior fascicular block i.e., bifascicular block. There is voltage criteria for ventricular hypertrophy. The urinalysis reveals few bacteria, +3 protein, +4 glucose, +1 ketones, +1 blood, pH was 8, specific gravity 1.010, wbcs per high-power field. I was asked to see the patient in neurologic consultation because he has family history of strokes and his mother, his brother, and father had strokes. PAST MEDICAL HISTORY: 1. Hypertension. See above. 2. Hyperlipidemia. See above. 3. . 4. 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 5. BPH. ALLERGIES: No known allergies. SURGERIES: SOCIAL HISTORY: He is , has 3 children in good health. 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 FAMILY HISTORY: His father of a stroke. His mother with complication of diabetes. She also had a stroke. REVIEW OF SYSTEMS: His appetite is "good." The rest of the review of systems is noncontributory. MEDICATIONS: He is on vitamin D, Lipitor, metformin 1000 b.i.d., glipizide, Lantus, metoprolol one a day, Actos, Flomax, and gabapentin PHYSICAL EXAMINATION: GENERAL: He is a well-developed, well-nourished man, depressed appearing, lying in bed. VITAL SIGNS: Pulse 60 and regular, temperature degrees, respirations 18, blood pressure 124/64, SpO2 is 100. HEENT: Head, ears, eyes, nose, throat reveals cataract formation. NECK: There is no tenderness or limitation of motion. Carotids are +2. There is a right carotid bruit. LUNGS: Clear to auscultation. CHEST: He has a vertical surgical scar noted without tenderness. CARDIOVASCULAR: PMI is not felt. JVP is not well visualized. Heart sounds distant. There are no S3, S4, or murmurs are appreciated. ABDOMEN: Slightly obese. Bowel sounds intact. There is no tenderness, masses, or organomegaly. BACK: There is no tenderness to percussion. No muscle spasm. EXTREMITIES: Peripheral pulses in the upper extremities are +2/+1 in the lower extremities, now +1 in the left lower extremity. NEUROLOGIC: Mental status: Judgment could not be tested. Affect was flat. Memory, past memory is intact to his birthday, 1945. Immediate recall is orientation. Time, initially he thought it was 08/29/2018. 09/29/2018. Place, he knows he is at [facility] second floor . Language function, spoken speech was fluent . Comprehension is not impaired. There is no paraphasia. CRANIAL NERVE EXAMINATION: CRANIAL NERVE II: Visual bales are intact to confrontation. Fundi were not visualized. CRANIAL NERVES III, IV, AND : Extraocular motility is full. Pupils are approximately 4 mm,, round, light reactive. CRANIAL NERVE V: Facial and corneal sensations were intact to fine touch. Pterygoid strength 5/5. CRANIAL NERVE VII: Facial strength 5/5 bilaterally. CRANIAL NERVE VIII: Auditory acuity was peripherally intact to a loud whisper. CRANIAL NERVES IX AND X: Gag is intact bilaterally. CRANIAL NERVE XI: Sternocleidomastoid strength is 5/5. CRANIAL NERVE XII: Tongue protrudes in the midline without fasciculations or atrophy. MUSCLE EXAMINATION: Muscle bulk is symmetrically decreased below the knees. Tone is normal. Strength 5/5 proximally and distally. REFLEXES: Trace to +1 in the upper extremities, 0 at the knees and ankles with downgoing toes and testing for Babinski response. COORDINATION: [id number], [id number] testing intact. GAIT AND STATION: Was not tested at this time. SENSORY EXAMINATION: There is decreased proprioception on the toes in the right foot. It was normal at the ankles. Normal in the right upper extremity. Proprioception was normal in the left upper and left lower extremity. Pinprick is subjectively intact. Fine touch could be evaluated. IMPRESSION: The patient has a metabolic encephalopathy related to his diabetes out of control. As far as his stroke is concern due to small vessel disease, it may be causing proprioception in the right foot. small vessel disease related to his diabetes and hypertension is probably not due to stroke and related to his diabetes out of control. blood sugar out of control ____ control diabetes, control hyperglycemia. He also has vertigo treat this diabetes aggressively and then his blood pressure around 120/80. The patient can probably have an MRA of his brain and neck. His creatinine is not that high and completely normal range. He has prerenal azotemia, probably related to congestive heart failure and congestive heart failure. He does have the mild CHF and can add to his abnormal mental status. PLAN: 1. MRI/MRA of the brain and neck. 2. Continue his aspirin increasing to 325 mg a day. 3. Get the patient 4. C-reactive protein. Thank you for this interesting case. Dao Nevarez MD DR: JOHAN JOB#: [id number] CC:
[2018-09-29 04:00] VITALS: BP 146/72
--- NOTE | 2018-09-29 07:38 | NUR ---
HAND-OFF: Report given to Pricilla RAE.
--- NOTE | 2018-09-29 07:39 | NUR ---
NURSE NOTES: received pt. pt is resting on the bed. family member at the bedside. pt states no pain at this moment. alert awake and Ox4. call light within reach. no SOB noted.
[2018-09-29 08:00] VITALS: BP 133/69
--- NOTE | 2018-09-29 08:41 | Infectious Diseases Prog Note ---
Assessment/Plan Assessment/Plan IMPRESSION: 1. Leukocytosis with eosinophilia.improving 2. Vertigo. 3. Uncontrolled hypertension. 4. Uncontrolled diabetes mellitus. 5. Subacute to chronic left lacunar infarct. 6. Coronary artery disease, status post bypass. RECOMMENDATIONS: 1.will f/u stool Ova & parasite 2. We will follow up the CBC. 3. Observe off antibiotics for now. Subjective ROS Limited/Unobtainable: No Constitutional: Reports: no symptoms Respiratory: Reports: no symptoms Cardiovascular: Reports: no symptoms Gastrointestinal/Abdominal: Reports: no symptoms Genitourinary: Reports: no symptoms Allergies: Coded Allergies: No Known Allergies (Verified , 03/20/09) Objective Vital Signs Last 24 Hour Vital Signs Date Time Temp Pulse Resp B/P (MAP) Pulse Ox O2 Delivery O2 Flow Rate FiO2 09/29/18 04:00 64 09/29/18 04:00 98.5 60 18 146/72 (96) 97 09/29/18 04:00 Room Air 09/29/18 00:00 98.1 60 18 144/69 (94) 96 09/29/18 00:00 59 09/29/18 00:00 Room Air 09/28/18 20:00 64 09/28/18 20:00 Room Air 09/28/18 20:00 97.5 67 20 134/70 (91) 95 09/28/18 16:00 Room Air 09/28/18 16:00 66 09/28/18 16:00 96.0 65 21 128/66 (86) 100 09/28/18 12:00 Room Air 09/28/18 12:00 97.5 66 22 121/57 (78) 96 09/28/18 11:51 66 09/28/18 10:06 65 135/67 09/28/18 09:03 98.4 65 21 135/67 (89) 100 Height (Feet): 5 Height (Inches): 7.00 Weight (Pounds): 149 General Appearance: no acute distress HEENT: mucous membranes moist Respiratory/Chest: lungs clear Cardiovascular: normal rate Abdomen: soft, non tender Extremities: no edema Skin: other - facial seborrheic dermatitis Neurologic/Psychiatric: alert, oriented x 3, responsive Current Medications Medications (Trade) Dose Ordered Sig/Alondra Route PRN Reason Start Time Stop Time Status Last Admin Dose Admin Acetaminophen (Tylenol) 650 mg Q4H PRN ORAL Mild Pain/Temp > 100.5 09/27/18 16:00 10/27/18 15:59 Amlodipine Besylate (Norvasc) 5 mg DAILY ORAL 09/27/18 16:30 10/27/18 16:29 09/28/18 10:06 Aspirin (ASA) 81 mg DAILY ORAL 09/27/18 14:15 10/27/18 14:14 09/28/18 10:05 Clonidine HCl (Catapres Tab) 0.1 mg Q4H PRN ORAL bp 165 syst and above 09/27/18 16:45 10/27/18 16:44 Gadobutrol (Gadavist) 7.5 mmol NOW PRN IV Radiology Procedure 09/28/18 09:15 10/01/18 09:07 Pantoprazole (Protonix) 40 mg Q12HR IVP 09/27/18 21:00 10/27/18 16:09 09/28/18 22:01 Sodium Chloride 1,000 ml @ 75 mls/hr [id number] IV 09/27/18 16:46 10/27/18 16:45 09/28/18 18:15 Tamsulosin HCl (Flomax) 0.4 mg BID ORAL 09/28/18 11:30 10/28/18 11:29 09/28/18 17:47 Florencio Dennison MD Sep 29, 2018 08:41
[2018-09-29] MEDS: Pantoprazole Inj IVP SCH (09:10)
[2018-09-29] MEDS: Aspirin Baby 81mg ORAL SCH (09:10)
[2018-09-29] MEDS: Tamsulosin 0.4mg cap ORAL SCH ×2 (09:10→20:47)
--- NOTE | 2018-09-29 11:23 | Nephrology Progress Note ---
Assessment/Plan Problem List: (1) Diabetic nephropathy Assessment: proteinuria (2) Urinary retention (3) CVA (cerebral vascular accident) (4) Vertigo (5) Intractable vomiting (6) HTN (hypertension) Assessment urinary retention intractible vomiting dehydration CVA HTN Anemia Proteinuria Plan continue Flomax decrease Hydrate Norvasc for bp hydralazine prn med surg per GI Subjective ROS Limited/Unobtainable: No Constitutional: Reports: weakness Objective Objective Last 24 Hour Vital Signs Date Time Temp Pulse Resp B/P (MAP) Pulse Ox O2 Delivery O2 Flow Rate FiO2 09/29/18 09:13 64 146/72 09/29/18 09:10 64 146/72 09/29/18 08:00 Room Air 09/29/18 08:00 97.9 66 18 133/69 (90) 96 09/29/18 07:58 75 09/29/18 04:00 64 09/29/18 04:00 98.5 60 18 146/72 (96) 97 09/29/18 04:00 Room Air 09/29/18 00:00 98.1 60 18 144/69 (94) 96 09/29/18 00:00 59 09/29/18 00:00 Room Air 09/28/18 20:00 64 09/28/18 20:00 Room Air 09/28/18 20:00 97.5 67 20 134/70 (91) 95 09/28/18 16:00 Room Air 09/28/18 16:00 66 09/28/18 16:00 96.0 65 21 128/66 (86) 100 09/28/18 12:00 Room Air 09/28/18 12:00 97.5 66 22 121/57 (78) 96 09/28/18 11:51 66 Intake and Output 09/28/18 09/29/18 19:00 07:00 Intake Total 1350 ml Output Total 650 ml 1065 ml Balance 700 ml -1065 ml Intake Oral 600 ml IV Total 750 ml Output Urine Total 650 ml 1065 ml Height (Feet): 5 Height (Inches): 7.00 Weight (Pounds): 149 General Appearance: no apparent distress, other - no more nausea Cardiovascular: normal rate Respiratory/Chest: decreased breath sounds Abdomen: soft Jung Cabrera MD Sep 29, 2018 11:23
[2018-09-29] MEDS ORDERED: HydrALAZINE 25mg tab ORAL PRN (11:30)
[2018-09-29 12:00] VITALS: BP 143/66
--- NOTE | 2018-09-29 12:23 | NUR ---
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 97.8 HR 81 RR 16 B/P 193/82 WBC 13.9 BUN 25 GLU 302 UA+ PROTEIN,BLOOD,KETONES,GLU,RBC CXR= SUSPECTED CHF HEAD CT=7CM LACUNAR INFARCT IN THE LEFT THALAMUS VENOUS DOPPLER STUDY- NEGATIVE BLE IS: MECLIZINE PO VALIUM PO ZOFRAN IV ADMITTED TO STEP DOWN @ 1430 STEP DOWN STATUS DCP RETURN HOME
--- NOTE | 2018-09-29 14:34 | NUR ---
ST NOTES: SWALLOW STATUS: PATIENT ALERT VOICE IS LOUDER. HE IS STILL TIRED. HIS IS AT THE BEDSIDE. GOOD INTAKE W/O OVERT ASPIRATION ON [facility] SOFT FINELY CHOPPED DIET AND THIN LIQUIDS. PT OK TO STAY ON THIS DIET FOR NOW. COULD NOT COMPLETE MODIFIED BARIUM SWALLOW STUDY DUE TO SCHEDULE CONFLICTS. STILL AWAITING RESULTS OF MRI BRAIN SCAN. PLAN: CONTINUE WITH CURRENT DIET/LIQUIDS WITH POSTED ASPIRATION PRECAUTIONS. D/W RN SO RI
--- NOTE | 2018-09-29 14:47 | NUR ---
NURSE NOTES: Dr. Luu at bed side, ordered metformin 500mg BID and Glipizide 5mg BID
[2018-09-29 16:00] VITALS: BP 131/68
[2018-09-29] MEDS: GlipiZIDE 5mg tab ORAL SCH (16:37)
[2018-09-29] MEDS: metFORMIN 500mg tab ORAL SCH (16:37)
--- NOTE | 2018-09-29 19:20 | NUR ---
HAND-OFF: Report given to Evelia Gardner RN.
--- NOTE | 2018-09-29 19:21 | NUR ---
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
[2018-09-29 20:00] VITALS: BP 124/55
--- NOTE | 2018-09-29 22:42 | General Progress Note ---
Assessment/Plan Problem List: (1) CVA (cerebral vascular accident) ICD Codes: I63.9 - Cerebral infarction, unspecified SNOMED: 291060954 (2) Vertigo ICD Codes: R42 - Dizziness and giddiness SNOMED: 875147053 (3) Unable to ambulate ICD Codes: R26.2 - Difficulty in walking, not elsewhere classified SNOMED: 853063596 (4) Intractable vomiting ICD Codes: R11.10 - Vomiting, unspecified SNOMED: 481693768 Status: progressing Assessment/Plan: needs facility to get pt/ot post stroke afebrile weak and in bed subacute cva weak slow mentation Subjective ROS Limited/Unobtainable: Yes Allergies: Coded Allergies: No Known Allergies (Verified , 03/20/09) Objective Last 24 Hour Vital Signs Date Time Temp Pulse Resp B/P (MAP) Pulse Ox O2 Delivery O2 Flow Rate FiO2 09/29/18 21:00 Room Air 09/29/18 20:00 98.2 64 18 124/55 (78) 97 09/29/18 20:00 64 09/29/18 16:00 96.7 64 18 131/68 (89) 97 09/29/18 15:30 63 09/29/18 12:00 98.1 66 19 143/66 (91) 98 09/29/18 11:31 66 09/29/18 09:13 64 146/72 09/29/18 09:10 64 146/72 09/29/18 08:00 Room Air 09/29/18 08:00 97.9 66 18 133/69 (90) 96 09/29/18 07:58 75 09/29/18 04:00 64 09/29/18 04:00 98.5 60 18 146/72 (96) 97 09/29/18 04:00 Room Air 09/29/18 00:00 98.1 60 18 144/69 (94) 96 09/29/18 00:00 59 09/29/18 00:00 Room Air Intake and Output 09/28/18 09/29/18 18:59 06:59 Intake Total 1350 ml Output Total 650 ml 1065 ml Balance 700 ml -1065 ml Intake Oral 600 ml IV Total 750 ml Output Urine Total 650 ml 1065 ml Height (Feet): 5 Height (Inches): 7.00 Weight (Pounds): 149 General Appearance: alert Neck: normal inspection Cardiovascular: normal rate Respiratory/Chest: lungs clear Amari Castorena MD Sep 29, 2018 22:42
[2018-09-30] VITALS: BP 133/70
[2018-09-30 04:00] VITALS: BP 121/68
--- NOTE | 2018-09-30 04:15 | Geriatric Medicine Prog Note ---
DATE: 09/29/2018 NOTE: POOR AUDIO SUBJECTIVE: The patient . PHYSICAL EXAMINATION: Vital signs are stable. . LABORATORY DATA: Glucose 239. ASSESSMENT: Symptoms control. b.i.d. Spenser Luu M.D. DR: NELY JOB#: [id number] CC:
[2018-09-30 04:51] LABS: HEMATOCRIT 34.4 % (42.0-52.0); HEMOGLOBIN 11.3 G/DL (14.2-18.0); MEAN CORPUSCULAR VOLUME 79 FL (80-99); PLATELET COUNT 186 K/UL (150-450); RED BLOOD COUNT 4.37 M/UL (4.70-6.10)
[2018-09-30 05:22] LABS: ALANINE AMINOTRANSFERASE 15 U/L (12-78); ALBUMIN 3.2 G/DL (3.4-5.0); ALKALINE PHOSPHATASE 53 U/L (46-116); ANION GAP 8 mmol/L (5-15); ASPARTATE AMINO TRANSFERASE 15 U/L (15-37); BILIRUBIN,TOTAL 0.5 MG/DL (0.2-1.0); BLOOD UREA NITROGEN 22 mg/dL (7-18); CALCIUM 8.8 MG/DL (8.5-10.1); CARBON DIOXIDE 25 MMOL/L (21-32); CHLORIDE 107 MMOL/L (98-107); CREATININE 1.1 MG/DL (0.55-1.30); PHOSPHORUS 3.3 MG/DL (2.5-4.9); POTASSIUM 3.6 MMOL/L (3.5-5.1); SODIUM 140 MMOL/L (136-145)
[2018-09-30] MEDS: GlipiZIDE 5mg tab ORAL SCH ×2 (06:05→17:22)
[2018-09-30] MEDS: metFORMIN 500mg tab ORAL SCH ×2 (06:05→17:21)
--- NOTE | 2018-09-30 07:00 | NUR ---
NURSE NOTES: received pt from Bobo RAE. pt is alert and AOx4. is at the bed side. no arrhythmia reported from last shift supervisor melting. no respiratory distress noted. no SOB noted. call light within reach.
--- NOTE | 2018-09-30 07:15 | NUR ---
HAND-OFF: Report given to Dawna RAE.
[2018-09-30 08:00] VITALS: BP 122/57
--- NOTE | 2018-09-30 08:14 | Diagnostic Imaging Report ---
MRI OF THE BRAIN, MRA OF THE HEAD AND NECK Indication: Vertigo, concern for infarct Technique: MRI the brain performed utilizing T1 sagittal, T2 axial, T1 FLAIR axial, T2 FLAIR axial, T2*GRE and diffusion axial images without gadolinium. 3-D [id number] of the brain and cervical arteries was also performed with 3-D reconstructions. Comparison: CT head dated 09/28/2018 FINDINGS: MRI BRAIN: No diffusion abnormalities are seen on diffusion weighted imaging. The sulci, ventricles and cisterns are prominent consistent with atrophy. Periventricular and supratentorial white matter T2 hyperintense foci are seen without mass effect, likely representing chronic ischemic microvascular disease.. There is no shift of midline structures. No significant extra-axial collections of fluid or blood are demonstrated. The sella and parasellar regions are unremarkable. Expected signal flow voids are seen of the vessels of the skull base. Visualized mastoid air cells are clear. Mild maxillary sinus mucosal thickening.. No focal bony calvarium or soft tissue lesions are seen. MRA BRAIN: There is mild multifocal stenosis of the left petrous and supraclinoid internal carotid artery. No occlusion or aneurysm is noted. Flow-related enhancement of the major intracranial arteries demonstrated including the anterior, middle, and posterior cerebral arteries. Both anterior cerebral arteries arise from the right anterior circulation. MRA NECK: Mild to moderate multifocal stenosis of the internal carotid arteries bilaterally, likely just beyond the bifurcation, in keeping with atherosclerotic disease. No occlusion, vascular malformation, or aneurysm is identified. IMPRESSION: 1. No evidence of acute infarct. 2. Mild intracranial left internal carotid artery stenosis as described above. 3. Mild to moderate multifocal atherosclerotic stenoses of the internal carotid arteries.
[2018-09-30] MEDS: Aspirin Baby 81mg ORAL SCH (08:19)
[2018-09-30] MEDS: Tamsulosin 0.4mg cap ORAL SCH ×2 (08:19→20:33)
--- NOTE | 2018-09-30 09:55 | NUR ---
ST NOTES: SWALLOW STATUS: PER MRI BRAIN, NO ACUTE INFARCT. THE PATIENT WANTS THE DOCTOR TO EXPLAIN HIS MRI TEST RESULTS. TOLD RN TO TELL MD. WILL HOLD ON MOD BARIUM SWALLOW STUDY FOR NOW SINCE NO CVA FOUND. GOALS MET FOR INTAKE AND TAKING 75 TO 100% [facility] FIN[facility] CH[facility] AND THIN LIQUIDS, WILL UPGRADE TO SOFT CHEW DIET AND CONTINUE WITH THIN LIQUIDS. HIS WILL CUT UP HIS CHICKEN IF HE NEEDS HELP. GOALS MET FOR NEW SUPERVISOR BORDER DEPARTMENT RUBY AND SO RI EDUCATED/TRAINED IN POSTED ASPIRATION PRECAUTIONS. PLAN: UPGRADE TO SOFT EASY CHEW AND THIN LIQUIDS AND CONTINUE WITH POSTED ASPIRATION PRECAUTIONS AND CONTINUE WITH PLAN OF CARE IN SWALLOW EVALUATION REPORT. ATTEMPT MEAL SUPERVISION
--- NOTE | 2018-09-30 10:20 | Infectious Diseases Prog Note ---
Assessment/Plan Assessment/Plan IMPRESSION: 1. Leukocytosis with eosinophilia.improving 2. Vertigo. 3. Uncontrolled hypertension. 4. Uncontrolled diabetes mellitus. 5. Subacute to chronic left lacunar infarct. 6. Coronary artery disease, status post bypass. RECOMMENDATIONS: 1.will f/u Eosinophil count 2.Observe off antibiotics for now. Subjective ROS Limited/Unobtainable: No Constitutional: Reports: no symptoms Respiratory: Reports: no symptoms Cardiovascular: Reports: no symptoms Gastrointestinal/Abdominal: Reports: no symptoms Genitourinary: Reports: no symptoms Allergies: Coded Allergies: No Known Allergies (Verified , 03/20/09) Objective Vital Signs Last 24 Hour Vital Signs Date Time Temp Pulse Resp B/P (MAP) Pulse Ox O2 Delivery O2 Flow Rate FiO2 09/30/18 09:00 Room Air 09/30/18 08:19 73 122/57 09/30/18 08:00 70 09/30/18 08:00 96.4 73 16 122/57 (78) 99 09/30/18 04:00 98.6 60 18 121/68 (85) 97 09/30/18 04:00 64 09/30/18 00:00 62 09/30/18 00:00 98.4 62 18 133/70 (91) 95 09/29/18 21:00 Room Air 09/29/18 20:00 98.2 64 18 124/55 (78) 97 09/29/18 20:00 64 09/29/18 16:00 96.7 64 18 131/68 (89) 97 09/29/18 15:30 63 09/29/18 12:00 98.1 66 19 143/66 (91) 98 09/29/18 11:31 66 Height (Feet): 5 Height (Inches): 7.00 Weight (Pounds): 149 General Appearance: no acute distress HEENT: mucous membranes moist Respiratory/Chest: lungs clear Cardiovascular: normal rate Extremities: no edema Neurologic/Psychiatric: alert, oriented x 3, responsive Laboratory Tests Test 09/30/18 03:10 White Blood Count 10.0 K/UL (4.8-10.8) Red Blood Count 4.37 M/UL (4.70-6.10) L Hemoglobin 11.3 G/DL (14.2-18.0) L Hematocrit 34.4 % (42.0-52.0) L Mean Corpuscular Volume 79 FL (80-99) L Mean Corpuscular Hemoglobin 25.7 PG (27.0-31.0) L Mean Corpuscular Hemoglobin Concent 32.7 G/DL (32.0-36.0) Red Cell Distribution Width 12.0 % (11.6-14.8) Platelet Count 186 K/UL (150-450) Mean Platelet Volume 7.4 FL (6.5-10.1) Neutrophils (%) (Auto) % (45.0-75.0) Lymphocytes (%) (Auto) % (20.0-45.0) Monocytes (%) (Auto) % (1.0-10.0) Eosinophils (%) (Auto) % (0.0-3.0) Basophils (%) (Auto) % (0.0-2.0) Sodium Level 140 MMOL/L (136-145) Potassium Level 3.6 MMOL/L (3.5-5.1) Chloride Level 107 MMOL/L (98-107) Carbon Dioxide Level 25 MMOL/L (21-32) Anion Gap 8 mmol/L (5-15) Blood Urea Nitrogen 22 mg/dL (7-18) H Creatinine 1.1 MG/DL (0.55-1.30) Estimat Glomerular Filtration Rate mL/min (>60) Glucose Level 153 MG/DL (74-106) H Uric Acid 3.8 MG/DL (2.6-7.2) Calcium Level 8.8 MG/DL (8.5-10.1) Phosphorus Level 3.3 MG/DL (2.5-4.9) Magnesium Level 2.0 MG/DL (1.8-2.4) Total Bilirubin 0.5 MG/DL (0.2-1.0) Aspartate Amino Transf (AST/SGOT) 15 U/L (15-37) Alanine Aminotransferase (ALT/SGPT) 15 U/L (12-78) Alkaline Phosphatase 53 U/L (46-116) C-Reactive Protein, Quantitative < 0.4 mg/dL (0.00-0.90) Total Protein 6.3 G/DL (6.4-8.2) L Albumin 3.2 G/DL (3.4-5.0) L Globulin 3.1 g/dL Albumin/Globulin Ratio 1.0 (1.0-2.7) Current Medications Medications (Trade) Dose Ordered Sig/Alondra Route PRN Reason Start Time Stop Time Status Last Admin Dose Admin Acetaminophen (Tylenol) 650 mg Q4H PRN ORAL Mild Pain/Temp > 100.5 09/27/18 16:00 10/27/18 15:59 Amlodipine Besylate (Norvasc) 5 mg DAILY ORAL 09/27/18 16:30 10/27/18 16:29 09/30/18 08:19 Aspirin (ASA) 81 mg DAILY ORAL 09/27/18 14:15 10/27/18 14:14 09/30/18 08:19 Gadobutrol (Gadavist) 7.5 mmol NOW PRN IV Radiology Procedure 09/28/18 09:15 10/01/18 09:07 Glipizide (Glucotrol) 5 mg BIAC ORAL 09/29/18 16:30 10/29/18 16:29 09/30/18 06:05 Hydralazine HCl (Apresoline) 25 mg Q4H PRN ORAL bp over 160 syst 09/29/18 11:30 10/29/18 11:29 Metformin HCl (Glucophage) 500 mg BIAC ORAL 09/29/18 16:30 10/29/18 16:29 09/30/18 06:05 Pantoprazole (Protonix) 40 mg EVERY 12 HOURS ORAL 09/29/18 21:00 10/29/18 20:59 09/30/18 08:19 Sodium Chloride 1,000 ml @ 50 mls/hr Q20H IV 09/29/18 11:30 10/27/18 11:29 09/30/18 08:17 Tamsulosin HCl (Flomax) 0.4 mg EVERY 12 HOURS ORAL 09/29/18 21:00 10/28/18 11:29 09/30/18 08:19 Florencio Dennison MD Sep 30, 2018 10:20
[2018-09-30] MEDS ORDERED: 1/2 NS 1000ml IV ONE (10:49)
[2018-09-30 12:00] VITALS: BP 146/67
--- NOTE | 2018-09-30 14:29 | Nephrology Progress Note ---
Assessment/Plan Problem List: (1) Diabetic nephropathy Assessment: proteinuria (2) Urinary retention (3) CVA (cerebral vascular accident) (4) Vertigo (5) Intractable vomiting (6) HTN (hypertension) Assessment urinary retention intractible vomiting dehydration CVA HTN Anemia Proteinuria Plan continue Flomax decrease Hydrate Norvasc for bp hydralazine prn med surg per GI Subjective ROS Limited/Unobtainable: No Constitutional: Reports: malaise Objective Objective Last 24 Hour Vital Signs Date Time Temp Pulse Resp B/P (MAP) Pulse Ox O2 Delivery O2 Flow Rate FiO2 09/30/18 12:00 98.6 65 20 146/67 (93) 98 09/30/18 12:00 64 09/30/18 09:00 Room Air 09/30/18 08:19 73 122/57 09/30/18 08:00 70 09/30/18 08:00 96.4 73 16 122/57 (78) 99 09/30/18 04:00 98.6 60 18 121/68 (85) 97 09/30/18 04:00 64 09/30/18 00:00 62 09/30/18 00:00 98.4 62 18 133/70 (91) 95 09/29/18 21:00 Room Air 09/29/18 20:00 98.2 64 18 124/55 (78) 97 09/29/18 20:00 64 09/29/18 16:00 96.7 64 18 131/68 (89) 97 09/29/18 15:30 63 Intake and Output 09/29/18 09/30/18 19:00 07:00 Intake Total 730.83 ml 300 ml Output Total 1300 ml 600 ml Balance -569.17 ml -300 ml Intake Oral 240 ml 300 ml IV Total 490.83 ml Output Urine Total 1300 ml 600 ml # Voids 5 3 Current Medications Medications (Trade) Dose Ordered Sig/Alondra Route PRN Reason Start Time Stop Time Status Last Admin Dose Admin Acetaminophen (Tylenol) 650 mg Q4H PRN ORAL Mild Pain/Temp > 100.5 09/27/18 16:00 10/27/18 15:59 Amlodipine Besylate (Norvasc) 5 mg DAILY ORAL 09/27/18 16:30 10/27/18 16:29 09/30/18 08:19 Aspirin (ASA) 81 mg DAILY ORAL 09/27/18 14:15 10/27/18 14:14 09/30/18 08:19 Gadobutrol (Gadavist) 7.5 mmol NOW PRN IV Radiology Procedure 09/28/18 09:15 10/01/18 09:07 Glipizide (Glucotrol) 5 mg BIAC ORAL 09/29/18 16:30 10/29/18 16:29 09/30/18 06:05 Hydralazine HCl (Apresoline) 25 mg Q4H PRN ORAL bp over 160 syst 09/29/18 11:30 10/29/18 11:29 Metformin HCl (Glucophage) 500 mg BIAC ORAL 09/29/18 16:30 10/29/18 16:29 09/30/18 06:05 Pantoprazole (Protonix) 40 mg EVERY 12 HOURS ORAL 09/29/18 21:00 10/29/18 20:59 09/30/18 08:19 Sodium Chloride 1,000 ml @ 50 mls/hr Q20H IV 09/29/18 11:30 10/27/18 11:29 09/30/18 08:17 Tamsulosin HCl (Flomax) 0.4 mg EVERY 12 HOURS ORAL 09/29/18 21:00 10/28/18 11:29 09/30/18 08:19 Laboratory Tests 09/30/18 03:10: White Blood Count 10.0, Red Blood Count 4.37L, Hemoglobin 11.3L, Hematocrit 34.4L, Mean Corpuscular Volume 79L, Mean Corpuscular Hemoglobin 25.7L, Mean Corpuscular Hemoglobin Concent 32.7, Red Cell Distribution Width 12.0, Platelet Count 186, Mean Platelet Volume 7.4, Neutrophils (%) (Auto) , Lymphocytes (%) ( Auto) , Monocytes (%) (Auto) , Eosinophils (%) (Auto) , Basophils (%) (Auto) , Sodium Level 140, Potassium Level 3.6, Chloride Level 107, Carbon Dioxide Level 25, Anion Gap 8, Blood Urea Nitrogen 22H, Creatinine 1.1, Estimat Glomerular Filtration Rate , Glucose Level 153H, Uric Acid 3.8, Calcium Level 8.8, Phosphorus Level 3.3, Magnesium Level 2.0, Total Bilirubin 0.5, Aspartate Amino Transf (AST/SGOT) 15, Alanine Aminotransferase (ALT/SGPT) 15, Alkaline Phosphatase 53, C-Reactive Protein, Quantitative < 0.4, Total Protein 6.3L, Albumin 3.2L, Globulin 3.1, Albumin/Globulin Ratio 1.0 Height (Feet): 5 Height (Inches): 7.00 Weight (Pounds): 149 General Appearance: no apparent distress Objective no change Jung Cabrera MD Sep 30, 2018 14:29
[2018-09-30 16:00] VITALS: BP 153/66
--- NOTE | 2018-09-30 16:12 | NUR ---
DISCHARGE PLANNING DISCHARGE ORDER NOTED Patient has been accepted to; [facility] [address] [place] [address] Bed: 37-A Skilled [phone] for Nurse to Nurse report [facility] ETA for transportation: 17:00
--- NOTE | 2018-09-30 16:52 | NUR ---
NURSE NOTES: dr manuel made aware that this patient will be discharge to [facility] of [facility]. per dr manuel its ok to dc patient to [facility], he will follow and can go today.will continue to monitor.
[2018-09-30] MEDS ORDERED: Milk of Magnesia 30ml Ud ORAL PRN (17:45)
[2018-09-30] MEDS ORDERED: Bisacodyl EC 5mg tab ORAL PRN (18:45)
--- NOTE | 2018-09-30 18:46 | NUR ---
NURSE NOTES: patient will be discharge to [facility] [place], awaits turkey picker time @ 1930.report given to [facility] of [place]. confirmed with [facility] of the turkey picker time. mechanical design engineer products removed. IV line removed and bleeding was stopped. administered MOM 30ml per ordered by dr pulido. patient had 1 large BM and and facility was informed.packet printed.
--- NOTE | 2018-09-30 19:28 | NUR ---
HAND-OFF: Report given to philipp navarrete.
--- NOTE | 2018-09-30 19:42 | NUR ---
RECEIVED PATIENT FROM MIGUEL ANGEL RAE,FOR DC TO [facility] AWAITING FOR THE [facility] TO LEGAL RECRUITER PATIENT.ALERT ORIENTED X4 ,BREATHING UNLABORED NO COMPLAIN OF PAIN,VITALS SIGN STABLE BP 131/71 HR 63 TEMP 98.1 SPO2 98% AT ROOM AIR.
[2018-09-30 19:45] VITALS: BP 137/71
--- NOTE | 2018-09-30 19:50 | NUR ---
NURSE NOTES: [facility] CALLED THAT THEY'LL BE HERE IN 45 MINUTES.
--- NOTE | 2018-09-30 20:45 | NUR ---
NURSE NOTES: CALLED [facility] SPOKE WITH NAYELI,AMBULANCE WILL BE HERE IN 10-15 MINUES,FAMILY UPDATED OF THE DELAY.
--- NOTE | 2018-09-30 21:55 | NUR ---
NURSE NOTES: PICKED UP BY [facility].DISCHARGE PATIENT TO [facility] WITH DISCHARGE PACKET .PATIENT EDUCATION GIVEN TO THE PATIENT AND FAMILY.
--- NOTE | 2018-10-01 05:00 | Geriatric Medicine Prog Note ---
DATE: 09/30/2018 NOTE: POOR AUDIO SUBJECTIVE: . PHYSICAL EXAMINATION: VITAL SIGNS: Stable. RESPIRATORY: Lungs clear. CARDIOVASCULAR: Regular. b.i.d. Spenser Luu M.D. DR: NELY JOB#: [id number] CC:
--- NOTE | 2018-10-01 05:00 | Progress Note ---
DATE: 09/30/2018 NOTE: POOR AUDIO SUBJECTIVE: The patient is without any symptoms. He denies any headache. The patient had an MRI of the brain on 09/28/2018, which revealed no new infarct. The diffusion-weighted image was negative. The MRA of the brain revealed mild multifocal stenosis internal carotid artery. The anterior cerebral artery right anterior circulation. MRA of the neck revealed mild to moderate multifocal stenosis in the internal carotid artery bilaterally with . Vascular studies reveal moderate 60% to 70% in the internal carotid artery on the right and mild 50% to 60% in the external carotid artery in the left side moderate 60% to 60% in the internal carotid artery on the right and mild to moderate 50% to 60% in the external carotid basically intact. PHYSICAL EXAMINATION: VITAL SIGNS: Temperature is 98.1 degrees, pulse is 64 and regular, blood pressure is 153/66, his SpO2 is 98. NEUROLOGIC: Mental status is alert and awake minimally at this time. Date, he thinks it is 09/29/2018. Place, he knows he is at [facility] second floor. Person, he is oriented to person. Language functions are unchanged. Cranial nerves II through XII revealed no change. MUSCLE EXAMINATION: Muscle bulk and tone are normal. Strength is 5/5. Reflexes are trace to +1 in the upper extremities, 0 at the ankles. Coordination, [id number], poxn-[id number] testing is intact. Gait and station not tested. IMPRESSION: There is no new stroke. The stroke that he has had is chronic because of lack of diffusion-weighted imaging. Otherwise it is not even subacute. The patient should continue on his aspirin. He has asymptomatic moderate stenosis in the right internal carotid artery. We may want to obtain a vascular surgical evaluation. Alternatively, he can follow up in 6 months with another vascular study and see if he gets worse. His hyperlipidemia is probably under control with an LDL of 80, but his blood sugars need to be under better control. PLAN: 1. Continue the patient's aspirin. 2. We may want to obtain a vascular surgical consultation. Dao Nevarez MD DR: JOHAN JOB#: [id number] CC:
[2018-10-01] MEDS ORDERED: Docusate 100mg cap ORAL SCH (09:00)
--- NOTE | 2018-10-02 09:48 | Discharge Summary ---
Discharge Summary Discharge Summary _ DATE OF ADMISSION: 09/27/2018 DATE OF DISCHARGE: 09/30/2018 DISCHARGED BY: Dr. Amari Romero CONSULTANTS: Dr. Jung Nevarez BRIEF HOSPITAL COURSE: Patient is a 72-year-old male, who presented to the emergency department for complaints of acute onset of severe nausea and vomiting. Patient stated he cannot tolerate anything p.o. He also complained of dizziness. He denied any chest pain or shortness of breath. Denied any dysuria or urinary frequency. Symptoms were noted to be severe. He denied eating anything out of the ordinary. He denied diarrhea. Denied abdominal pain. He has medical history significant for diabetes and hypertension. On evaluation at ED, blood pressure was elevated to 193/82. Blood work showed WBC of 14. Hemoglobin 12, hematocrit 37. Glucose level 302. LFTs were normal. Troponin negative. Lipase was normal. He had an EKG done that showed normal sinus rhythm with right bundle branch block. Chest x-ray showed CHF. Head CT showed 7 mm lacunar infarct in the left thalamus. Probably subacute to chronic in age. He was given volume, meclizine, Zofran and IV fluids. He did not qualify for TPA. He was given aspirin. He was then admitted for subacute CVA, elevated blood sugar, vertigo and vomiting, elevated blood pressure and leukocytosis. He was admitted to monitored floor. He presented with leukocytosis with eosinophilia. He was pancultured. He was observed off antibiotics. He was given IV hydration. Bladder ultrasound showed 250 cc residual urine post voiding. He was Flomax. Blood glucose was monitored. Hemoglobin A1c 9.1 he was given metformin 500 mg twice daily and glipizide 5 mg twice daily. He was given Norvasc and hydralazine for blood pressure. TSH was normal. Neurologist was consulted. Patient was assessed to have metabolic encephalopathy related to diabetes. Aspirin was increased to 325 mg daily. MRA of the neck showed no acute infarct with mild intracranial left internal carotid artery stenosis; mild to moderate multifocal atherosclerotic stenosis of the internal carotid arteries. Brain MRI did not show any evidence of acute infarct. He was given speech therapy and physical therapy. Venous duplex was negative for acute DVT. He was recommended mechanical soft finely chopped diet with thin liquids. Strict aspiration precaution. Per neurologist, there was no new stroke. Stroke he had was chronic because of lack of diffusion weighted imaging. Otherwise, not even subacute. He was advised to continue on aspirin. He has asymptomatic moderate stenosis in the right internal carotid artery. Vascular surgical evaluation was recommended. LDL was under control with LDL of 80. He was eventually discharged to a SNF. FINAL DIAGNOSES: Presumed subacute to chronic left lacunar infarct Moderate carotid artery stenosis Leukocytosis with eosinophilia Uncontrolled diabetes mellitus with diabetic nephropathy and proteinuria Uncontrolled hypertension Urinary retention Vertigo Intractable vomiting Coronary artery disease status post bypass Unable to ambulate DISPOSITION: DC to SNF. I have been assigned to complete a discharge summary on this account, I was not involved with the patient's management.--SHAISTA Pena Jacqueline Robles NP Oct 02, 2018 09:48
--- NOTE | 2018-10-02 11:33 | NUR ---
CASE MANAGEMENT: CM review and clinical information (face sheet/ ER MD notes/ H&P/DC summary) faxed to ALISTAIR SIMMONS @ [phone] and JENNIFER CERVANTES @ [phone]
== END 2018-09-30 22:04 | DRG 637 ==
LOC: EDBD 11:27 → EMR 12:03 → 2W 12:36 → EDBEDREQSVC 13:35 → EDBEDREQ 13:44
DX: E11.65 Type 2 diabetes mellitus with hyperglycemia (principal); G93.41 Metabolic encephalopathy; E86.0 Dehydration; Z86.73 Personal history of transient ischemic attack (TIA), and cerebral infarction without residual deficits; I65.29 Occlusion and stenosis of unspecified carotid artery; E11.21 Type 2 diabetes mellitus with diabetic nephropathy; I10 Essential (primary) hypertension; R33.9 Retention of urine, unspecified; I25.10 Atherosclerotic heart disease of native coronary artery without angina pectoris; R42 Dizziness and giddiness; Z95.1 Presence of aortocoronary bypass graft; N40.0 Benign prostatic hyperplasia without lower urinary tract symptoms; R26.2 Difficulty in walking, not elsewhere classified; I45.10 Unspecified right bundle-branch block; R11.2 Nausea with vomiting, unspecified
CPT/HCPCS: 36415; 70450; 70544; 70548; 70551; 71045; 80053; 80061; 81003; 82550; 82553; 82607; 82728; 82746; 82962; 82977; 83036; 83540; 83550; 83690; 83735; 83880; 84100; 84443; 84484; 84550; 85025; 86140; 92610; 93005; 93880; 93970; 96374; 96375; 99285; A9585; J2405